=== PATIENT | male | born 1960 | race Caucasian/White ===

== ENCOUNTER 2021-07-07 13:59 | Emergency (ER) | payer SELFPAY ==
[~2021-07-07] VITALS: Ht 182.9 cm; Wt 99.8 kg
[2021-07-07] MEDS ORDERED: ONDA4ODT MM (15:28)
[2021-07-07] MEDS ORDERED: ALBU90OI INH (15:28)
[2021-07-07] MEDS ORDERED: CODEINE-GUAIFE120 M1 PO (15:28)
== END 2021-07-07 16:13 | disposition home or self-care (01) ==
LOC: ER 13:59
DX: U07.1 COVID-19 (principal); I10 Essential (primary) hypertension; Z79.899 Other long term (current) drug therapy
CPT/HCPCS: 99283; A9270

== ENCOUNTER → 2023-05-20 | Outpatient (CLI) | payer BC ==
[~2023-05-20] MED LIST: ALBU90OI INH; CODEINE-GUAIFE120 M1 PO; ONDA4ODT MM
[2023-05-20 12:36] LABS: Creatinine, Urine Random 97.7 mg/dL (27.00-270.00)
[2023-05-20 12:38] LABS: Microalb/Creat Ratio UR, Rand 5.476 mg/g (0.000-30.000); Microalbumin, Random Urine 5.35 mg/L (0.000-20.000)
== END ==
LOC: LAB SHORT 08:20 → LAB 08:20
PROVIDERS: Physician Assistant
DX: N18.30 Chronic kidney disease, stage 3 unspecified (principal)
CPT/HCPCS: 82043; 82570